=== PATIENT | female | born 1985 | race American Indian/Alaskan Native ===

== ENCOUNTER 2020-04-17 08:14 | Day surgery (SDC) | payer BC ==
[~2020-04-17 08:14] MED LIST: SODIUM CHLORIDE 0.9% 1000 ML 1,000 ML IV SCH
--- NOTE | 2020-04-17 09:02 | Anesthesia Day of Surgery ---
Anesthesia Day of Surgery - Day of Surgery Patient Examined: Yes Patient H&P Reviewed: Yes Patient is NPO: Yes
--- NOTE | 2020-04-17 09:03 | Anesthesia Consultation ---
Anesthesia Consult and Med Hx Date of service: 04/17/20 - Airway Anesthetic Teeth Evaluation: Good ROM Head & Neck: Adequate Mental/Hyoid Distance: Adequate Mallampati Class: Class I Intubation Access Assessment: Good - Pre-Operative Health Status ASA Pre-Surgery Classification: ASA1 Proposed Anesthetic Plan: MAC - Pulmonary Hx Smoking: No Hx Respiratory Symptoms: No - Cardiovascular System Hx Hypertension: No - Gastrointestinal Hx Gastroesophageal Reflux Disease: No - Endocrine Hx Renal Disease: No Hx Liver Disease: No Hx Non-Insulin Dependent Diabetes: No - Hematic Hx Sickle Cell Disease: No
[2020-04-17] MEDS ORDERED: LIDOCAINE MPF (2%) 20 MG/1 ML VIAL 5 ML ONE (10:10)
[2020-04-17] MEDS ORDERED: propofoL 200 MG/20 ML VIAL IV ONE ×3 (10:10→10:27)
--- NOTE | 2020-04-17 10:54 | Operative Report ---
PROCEDURE: Esophagogastroduodenoscopy with biopsy and balloon dilation. INDICATIONS: This is a 34-year-old -[place] female in otherwise good health, who has been lately complaining of abdominal pain and dysphagia as well as GERD symptoms. EGD was done to assess for the issue and to do an esophageal dilation if needed. DESCRIPTION OF PROCEDURE: The procedure was done after getting informed consent with MAC anesthesia. Instrument was passed through the hypopharynx into the esophagus, which did show some mild benign esophageal stenosis. This was dilated at the end of the procedure with a 20 mm balloon that was maintained for a minute. The stomach showed mild to moderate distal erosive esophagitis and biopsy was done from the distal esophagus to assess for the severity of the erosive esophagitis as well as from the mid esophagus to assess for possible eosinophilic esophagitis. Stomach showed gastritis. No ulcers were noted in the straight or the retroverted view. Pylorus was patent. Duodenum in the first and second portion appeared normal. Biopsy was done from the second part of the duodenum to rule out for possible celiac disease. Additional biopsy was done from the gastric antrum, gastric body and angular incisura to rule out for H. pylori and atrophic gastritis. There was minimal bleeding associated with the procedure. No complications associated with the procedure. ASSESSMENT: Dysphagia secondary to mild benign esophageal stenosis, status post dilation with an esophageal balloon dilator a 20-Yi that was maintained for a minute. Mild to moderate distal erosive esophagitis, rule out eosinophilic esophagitis, gastritis, rule out celiac disease. No peptic ulcer disease noted. There was minimal bleeding associated with the procedure. No complications associated with the procedure. PLAN: Treat the patient with PPI and also p.r.n. dose of Bentyl, avoid aspirin and aspirin-related products for the next few days and to do a colonoscopy for further assessment. The procedure was done in the GI lab with assistance of the GI lab team, which included RN, Sumaya Chandler; Quang nichols and with assistance of anesthesia. [facility]# [id number] [facility]
--- NOTE | 2020-04-17 11:00 | Procedure Note ---
Date of procedure: 04/17/20 Pre-op diagnosis: Dysphagia and Abdominal Pain Post-op diagnosis: other (Mild, Benign Esophageal Stenosis/Milsd to Moderate Erosive Esophagitis/R/O Eosinophilic Esophagitis/ Gastritis/ R/O Celiac Disease/Minor,Diverticuli (Sigmoid)/ R/O Microscopic colitis/ R/O Ileitis/ Minor,Internal Hemorrhoid) Procedure: EGD with Biopsy and S/P Balloon dilation (20 mm)/ Colonoscopy with Biopsy Anesthesia: [facility] [place] Surgeon: MILDRED MENDOZA Estimated blood loss: minimal Specimen disposition: to lab Condition: stable Disposition: same day (Treat with PPI, prn Bentyl and OTC Probiotic as directed. Avoid aspirin and NSAID otherwise resume home medication. Follow up in 1 to 2 weeks ([phone]).)
--- NOTE | 2020-04-17 11:07 | Operative Report ---
PROCEDURE: Colonoscopy with biopsy. INDICATIONS: This is a 34-year-old otherwise healthy -[place] female who had been complaining of abdominal pain and dysphagia. EGD was done with esophageal dilation because of mild benign esophageal stenosis and biopsy was also done to assess for the severity of the erosive esophagitis, gastritis and to rule out for celiac disease as well as eosinophilic esophagitis. DESCRIPTION OF PROCEDURE: Colonoscopy was done after getting informed consent with MAC anesthesia. Initial rectal exam was unremarkable. Instrument was passed through the rectum onto the cecum, which was identified with ileocecal valve and the appendiceal orifice. Visualization was fair to good. The terminal ileum was intubated, showed normal mucosa. Biopsy was done to rule out for possible ileitis. Cecum, ascending colon, transverse colon, descending colon, and sigmoid showed normal mucosa except for a solitary diverticula in the sigmoid. Random biopsies were done to rule out for microscopic colitis. No polyps were noted and the rectum showed some minor internal hemorrhoid on the retroverted view. There was minimal bleeding associated with the procedure. No complications associated with the procedure. ASSESSMENT: Abdominal pain, rule out microscopic colitis, rule out ileitis, minor diverticula in the sigmoid, minor internal hemorrhoid. PLAN: To encourage the patient to take fiber supplements, treat the patient with PPI, p.r.n. dose of Bentyl because of the EGD findings of GERD symptoms and esophagitis and gastritis and Bentyl on a p.r.n. basis for the abdominal pain. The patient will also be asked to take probiotic [id number] as directed and follow up in the office in 1-2 weeks' time. The procedure was done in the GI lab with assistance of the GI lab team, which included Sumaya HARDING; Quang nichols and with assistance of anesthesia. JOB# [id number] [facility]
[2020-04-17 11:43] VITALS: BP 111/67
--- NOTE | 2020-04-17 14:38 | Post Anesthesia Evaluation ---
- Post Anesthesia Evaluation Patient Participated: Yes Airway Patent: Yes Stable Respiratory Function: Yes Nausea/Vomiting: No Temp > 96.8F: Yes Pain Manageable: Yes Adequeate Hydration: Yes Anesthesia Complications: No Block Receding Appropriately: Not Applicable Patient on Ventilator: No
== END 2020-04-17 11:37 | disposition home or self-care (01) ==
LOC: GIO 08:14
DX: R10.9 Unspecified abdominal pain (principal); K57.30 Diverticulosis of large intestine without perforation or abscess without bleeding; K64.8 Other hemorrhoids; K22.2 Esophageal obstruction; R13.10 Dysphagia, unspecified; K31.89 Other diseases of stomach and duodenum; K63.89 Other specified diseases of intestine; K29.70 Gastritis, unspecified, without bleeding; K52.89 Other specified noninfective gastroenteritis and colitis; Z88.8 Allergy status to other drugs, medicaments and biological substances; Z80.3 Family history of malignant neoplasm of breast; Z79.899 Other long term (current) drug therapy; Z98.890 Other specified postprocedural states; K20.90 Esophagitis, unspecified without bleeding
CPT/HCPCS: 43239; 43249; 45380; 81025; 88305; 88342; J2704; J7030